=== PATIENT | female | born 1955 | race Caucasian/White ===

== ENCOUNTER 2018-12-30 17:44 | Emergency (ER) | payer OTHER ==
[~2018-12-30] VITALS: Ht 162.5 cm; Wt 65.8 kg
== END 2018-12-30 18:36 | disposition home or self-care (01) ==
LOC: ED 17:44
DX: S40.862A Insect bite (nonvenomous) of left upper arm, initial encounter (principal); W57.XXXA Bitten or stung by nonvenomous insect and other nonvenomous arthropods, initial encounter; Y93.89 Activity, other specified; Y92.89 Other specified places as the place of occurrence of the external cause; Y99.8 Other external cause status